=== PATIENT | female | born 1995 | race Caucasian/White ===

== ENCOUNTER 2017-09-17 20:36 | Emergency (ER) | payer BC ==
--- NOTE | 2017-09-17 21:28 | RADIOLOGY REPORT (SQ) ---
EXAM DESCRIPTION: CHEST SINGLE VIEW COMPLETED DATE/TIME: 09/17/2017 9:20 pm REASON FOR STUDY: cough, sob COMPARISON: None. EXAM PARAMETERS: NUMBER OF VIEWS: One view. TECHNIQUE: Single frontal radiographic view of the chest acquired. RADIATION DOSE: NA LIMITATIONS: None. FINDINGS: LUNGS AND PLEURA: No opacities, masses or pneumothorax. No pleural effusion. MEDIASTINUM AND HILAR STRUCTURES: No masses. Contour normal. HEART AND VASCULAR STRUCTURES: Heart normal in size. Normal vasculature. BONES: No acute findings. HARDWARE: None in the chest. OTHER: No other significant finding. IMPRESSION: NO ACUTE RADIOGRAPHIC FINDING IN THE CHEST. TECHNICAL DOCUMENTATION: JOB ID: [id number] [place]-72 2010 [employer]- All Rights Reserved Reading location - IP/workstation name: [employer]
[2017-09-17] MEDS ORDERED: DEXAMETHASONE 4 MG TABLET PO ONE (22:09)
[2017-09-17] MEDS ORDERED: BENZONATATE 100 MG CAPSULE PO ONE (22:13)
[2017-09-17] MEDS ORDERED: AMOXICILLIN TRIHYD 250 MG/5 ML SUSP 80 ML PO ONE (22:14)
--- NOTE | 2017-09-17 22:14 | ER Document Report ---
ED General - General Chief Complaint: Cold Symptoms Stated Complaint: SHORTNESS OF BREATH Time Seen by Provider: 09/17/17 21:07 Notes: Patient is a 22-year-old female without chronic medical problems who presents with feeling sick for "the past 3 months". The patient reports a cough, body aches, sore throat, nasal congestion and bilateral ear pain worse in the right versus the left. She states that she was treated for a pneumonia with levofloxacin approximately 1 month ago but did not have any significant improvement of her symptoms at that time. Nothing is new or different about her symptoms today that prompted a visit to the emergency department. She does work in an assisted living. She has not seen her general doctor regarding today 's concerns. She denies any difficulty breathing, swallowing, headache or neck pain. Multiple sick contacts. - Related Data Allergies/Adverse Reactions: No Known Allergies Allergy (Unverified 09/17/17 20:41) Past Medical History - General Information source: Patient - Social History Smoking Status: Never Smoker Frequency of alcohol use: None Drug Abuse: None Family History: Reviewed & Not Pertinent Patient has suicidal ideation: No Patient has homicidal ideation: No Renal/ Medical History: Denies: Hx Peritoneal Dialysis Review of Systems - Review of Systems Notes: Constitutional: Negative for fever. HENT: Positive for sore throat. Eyes: Negative for visual changes. Cardiovascular: Negative for chest pain. Respiratory: Positive for cough Gastrointestinal: Negative for abdominal pain, vomiting or diarrhea. Genitourinary: Negative for dysuria. Musculoskeletal: Negative for back pain. Skin: Negative for rash. Neurological: Negative for headaches, weakness or numbness. 10 point ROS negative except as marked above and in HPI. Physical Exam - Vital signs Vitals: Temp Pulse Resp BP Pulse Ox 98.4 F 109 H 20 132/84 H 97 09/17/17 20:43 09/17/17 20:43 09/17/17 20:43 09/17/17 20:43 09/17/17 20:43 Interpretation: Tachycardic Notes: PHYSICAL EXAMINATION: GENERAL: Well-appearing, well-nourished and in no acute distress. HEAD: Atraumatic, normocephalic. EYES: Pupils equal round and reactive to light, extraocular movements intact, sclera anicteric, conjunctiva are normal. ENT: nares patent, oropharynx clear without exudates. Moist mucous membranes. Right TM bulging, left TM clear, nasal congestion and bilateral maxillary sinus pressure. NECK: Normal range of motion, supple without lymphadenopathy LUNGS: Breath sounds clear to auscultation bilaterally and equal. No wheezes rales or rhonchi. HEART: Regular rate and rhythm without murmurs ABDOMEN: Soft, nontender, normoactive bowel sounds. No guarding, no rebound. No masses appreciated. EXTREMITIES: Normal range of motion, no pitting or edema. No cyanosis. NEUROLOGICAL: No focal neurological deficits. Moves all extremities spontaneously and on command. PSYCH: Normal mood, normal affect. SKIN: Warm, Dry, normal turgor, no rashes or lesions noted. Course - Re-evaluation Re-evalutation: 09/17/17 22:10 Presentation is most consistent with an acute otitis media on the right. Clinical history as well as exam is most consistent with this diagnosis. Based on history and examination do not suspect an acute meningitis, encephalitis, peritonsillar abscess, or retropharyngeal abscess. Patient appears to have an associated viral upper respiratory infection. Chest x-ray is clear without any evidence of an acute pneumonia. Vitals otherwise within normal limits. The patient will be started on amoxicillin 3 times daily for 10 days. A dose of dexamethasone was given for throat discomfort and there is no evidence of a retropharyngeal abscess on examination. At this time will discharge with return precautions and follow-up recommendations. Verbal discharge instructions given a the bedside to the parents and opportunity for questions given. Medication warnings reviewed. Patient is in agreement with this plan and has verbalized understanding of return precautions and the need for primary care follow-up in the next 24-72 hours. - Vital Signs Vital signs: Temp Pulse Resp BP Pulse Ox 98.9 F 86 16 133/74 H 97 09/17/17 23:30 09/17/17 23:30 09/17/17 23:30 09/17/17 23:30 09/17/17 23:30 - Diagnostic Test Radiology reviewed: Image reviewed, Reports reviewed Radiology results interpreted by me: 09/17/17 22:15 Chest x-ray: No acute infiltrate or pneumothorax Discharge - Discharge Clinical Impression: Viral respiratory infection Right otitis media Qualifiers: Otitis media type: unspecified Qualified Code(s): H66.91 - Otitis media, unspecified, right ear Condition: Good Disposition: HOME, SELF-CARE Additional Instructions: You were seen today for ear pain and have an acute ear infection. Please take the antibiotic that has been prescribed until it is completed even if you are feeling better before you have finished all the antibiotics. For your pain: Take ibuprofen 600 mg and acetaminophen 1000 mg every 6 hours together as needed for pain. Return if you have worsening of your pain, loss of hearing in the affected ear, worsening facial pain, headaches, pass out, or any other symptoms that are worrisome to you. You were seen for symptoms most consistent with bronchitis. This can take up to 12 weeks to fully resolve. This is generally due to a viral infection. Please follow-up with your primary doctor in the next 2-3 days. Return if you develop worsening cough, vomiting, fever >100.4, pass out, begin coughing blood, or have any other symptoms that are concerning to you. Please use the medications prescribed today as directed. Prescriptions: Amoxicillin Trihydrate [Amoxil 200 mg/5 mL Susp] 500 mg PO TID 10 Days ml Referrals: INDIO GUARDADO MD [Primary Care Provider] - Follow up as needed
[2017-09-17] MEDS ORDERED: AMOXICILLIN TRIHYD 250 MG/5 ML SUSP 80 ML ONE (23:15)
[2017-09-17 23:31] VITALS: BP 133/74
== END 2017-09-17 23:31 | disposition home or self-care (01) ==
LOC: ER 20:36
DX: J98.8 Other specified respiratory disorders (principal); B97.89 Other viral agents as the cause of diseases classified elsewhere; H66.91 Otitis media, unspecified, right ear; R05 Cough; J02.9 Acute pharyngitis, unspecified; R09.81 Nasal congestion; H92.03 Otalgia, bilateral; Z87.01 Personal history of pneumonia (recurrent)
CPT/HCPCS: 71045; 99284; J3490

== ENCOUNTER 2018-08-29 15:08 | Emergency (ER) | payer BC ==
--- NOTE | 2018-08-29 16:07 | ER Document Report ---
ED Medical Screen (RME) - General Chief Complaint: Facial Droop Stated Complaint: FACIAL SPASMS Time Seen by Provider: 08/29/18 16:06 Primary Care Provider: INDIO GUARDADO MD [Primary Care Provider] - Follow up as needed Information source: Patient Notes: Patient presents complaining of left side facial and left-sided neck spasms. Patient does complain of some throat discomfort. Patient denies any dental infection. I have greeted and performed a rapid initial assessment of this patient. A comprehensive ED assessment and evaluation of the patient, analysis of test results and completion of the medical decision making process will be conducted by additional ED providers. TRAVEL OUTSIDE OF THE [place] IN LAST 30 DAYS: No - Related Data Allergies/Adverse Reactions: No Known Allergies Allergy (Verified 08/29/18 15:10) Past Medical History Renal/ Medical History: Denies: Hx Peritoneal Dialysis Physical Exam - Vital signs Vitals: Temp Pulse Resp BP Pulse Ox 97.9 F 77 16 147/81 H 99 08/29/18 15:18 08/29/18 15:18 08/29/18 15:18 08/29/18 15:18 08/29/18 15:18 - General General appearance: Appears well, Alert Notes: No potential airway compromise. No trismus. Course - Vital Signs Vital signs: Temp Pulse Resp BP Pulse Ox 97.9 F 77 16 147/81 H 99 08/29/18 15:18 08/29/18 15:18 08/29/18 15:18 08/29/18 15:18 08/29/18 15:18 Doctor's Discharge - Discharge Referrals: INDIO GUARDADO MD [Primary Care Provider] - Follow up as needed
[2018-08-29 16:28] LABS: ABSOLUTE BASOPHILS # (AUTO) 0.1 10^3/uL (0.0-0.2); ABSOLUTE EOSINOPHILS # (AUTO) 0.1 10^3/uL (0.0-0.6); ABSOLUTE LYMPHOCYTES (AUTO) 1.9 10^3/uL (0.5-4.7); ABSOLUTE MONOCYTES (AUTO) 0.8 10^3/uL (0.1-1.4); ABSOLUTE NEUT (AUTO) 16.3 10^3/uL (1.7-8.2); BASOPHILS % (AUTO) 0.4 % (0-2); EOSINOPHILS % (AUTO) 0.6 % (0-6); HEMATOCRIT 40.7 % (36.0-47.0); HEMOGLOBIN 13.8 g/dL (12.0-15.5); LYMPHOCYTES % (AUTO) 9.8 % (13-45); MEAN CORPUSCULAR HEMOGLOBIN 27.8 pg (27.0-33.4); MEAN CORPUSCULAR HGB CONC 33.8 g/dL (32.0-36.0); MEAN CORPUSCULAR VOLUME 82 fl (80-97); MONOCYTES % (AUTO) 4.4 % (3-13); PLATELET COUNT 299 10^3/uL (150-450); RED BLOOD COUNT 4.95 10^6/uL (3.72-5.28); RED CELL DISTRIBUTION WIDTH 13.4 % (11.5-14.0); SEGMENTED NEUTROPHILS % (AUTO) 84.8 % (42-78); TOTAL CELLS COUNTED % (AUTO) 100 %; WHITE BLOOD COUNT 19.2 10^3/uL (4.0-10.5)
[2018-08-29 16:54] LABS: ANION GAP 10 (5-19); BLOOD UREA NITROGEN 13 mg/dL (7-20); CALCIUM 9.9 mg/dL (8.4-10.2); CARBON DIOXIDE 28 mmol/L (22-30); CHLORIDE 101 mmol/L (98-107); GLUCOSE 117 mg/dL (75-110); POTASSIUM 4.2 mmol/L (3.6-5.0)
[2018-08-29] MEDS ORDERED: DEXAMETHASONE SOD PHOS INJ 10 MG/1 ML VIAL IM ONE (17:58)
--- NOTE | 2018-08-29 18:01 | ER Document Report ---
ED General - General Chief Complaint: Facial Droop Stated Complaint: FACIAL SPASMS Time Seen by Provider: 08/29/18 16:06 Primary Care Provider: INDIO GUARDADO MD [Primary Care Provider] - Follow up as needed TRAVEL OUTSIDE OF THE [place] IN LAST 30 DAYS: No - HPI Notes: Patient is a 23-year-old female no significant past medical history who presents complaining of left-sided neck pain/soreness that began about 5 to 6 hours ago. Patient states that the pain is described as spasms and has since improved. Patient states that the pain was worsened when she would rotate her head. Patient states that she does have a little soreness when she swallows, but is able to eat and drink without difficulty otherwise. She is urinating normally. Denies drug allergies. No history of peritonsillar/pharyngeal abscess. No surgical history to her neck or mouth. She has not had any dental pain. Denies any headache, fever, head injury, changes in vision/speech/mentation/hearing, URI, chest pain, palpitations, syncope, cough, shortness of breath, wheeze, dyspnea, abdominal pain, nausea/vomiting/diarrhea, urinary retention, dysuria, hematuria, or rash. - Related Data Allergies/Adverse Reactions: No Known Allergies Allergy (Verified 08/29/18 15:10) Past Medical History - General Information source: Patient - Social History Smoking Status: Current Some Day Smoker Frequency of alcohol use: None Drug Abuse: None Family History: Reviewed & Not Pertinent Patient has suicidal ideation: No Patient has homicidal ideation: No Renal/ Medical History: Denies: Hx Peritoneal Dialysis Review of Systems - Review of Systems -: Yes All other systems reviewed and negative Physical Exam - Vital signs Vitals: Temp Pulse Resp BP Pulse Ox 97.9 F 77 16 147/81 H 99 08/29/18 15:18 08/29/18 15:18 08/29/18 15:18 08/29/18 15:18 08/29/18 15:18 - Notes Notes: PHYSICAL EXAMINATION: GENERAL: Well-appearing, well-nourished and in no acute distress. A&Ox4. Answers questions appropriately. Moves comfortably w/o notable distress HEAD: Atraumatic, normocephalic. EYES: Pupils equal round and reactive to light, extraocular movements intact, sclera anicteric, conjunctiva are normal. ENT: EAC clear b/l. TM's intact b/l without erythema, fluid, or perforation. Nares patent and with clear discharge. oropharynx mild erythema without exudates. 1+ tonsilar hypertrophy without erythema no exudate. No palatine shift. Uvula midline. No tongue protrusion. No drooling, hoarseness, or ai rway compromise. Moist mucous membranes. No sinus tenderness. No dental/gum tenderness or jaw swelling. NECK: Normal range of motion, supple without lymphadenopathy. No rigidity/meningismus. + mild reproducible tenderness to palp near origin left sternocleidomastoid and with lateral rotation. LUNGS: Breath sounds clear to auscultation bilaterally and equal. No wheezes rales or rhonchi. No retractions HEART: Regular rate and rhythm without murmurs, rubs, gallops. ABDOMEN: Soft, nontender, nondistended abdomen. No guarding, no rebound. Normal bowel sounds present. No CVA tenderness bilaterally. No hepatosplenomegaly. NEUROLOGICAL: Normal speech, normal gait. PSYCH: Normal mood, normal affect. SKIN: Warm, Dry, normal turgor, no rashes or lesions noted. Course - Re-evaluation Re-evalutation: 08/29/18 17:[address] Klein who is in agreement with dispo/plan and to hold off on imaging at this time. Patient is an afebrile, well-hydrated, 23-year-old female who presents with left-sided neck pain/submandibular pain with questionable early infection (i.e. paroditis, submandibular abs, viral, etc.) versus muscle spasming. Vitals are acceptable without significant tachycardia, tachypnea, or hypoxia. PE is otherwise unremarkable. There is no evidence of abscess, erythema, asymmetry. No obvious lymphadenopathy is noted. CBC does show an elevated white count at 19 without bandemia. BMP and rapid strep unremarkable. As reviewed with Dr. Klein we will cover with Augmentin and hold off on any imaging. I will give her a shot of Decadron as well. Patient is otherwise nontoxic-appearing and is tolerating p.o. without difficulty. No further work-up warranted. Low suspicion for any meningitis, sepsis, peritonsillar/pharyngeal abscess, respiratory compromise, Pito's, or other emergent systemic condition at this time. Patient is aware this condition can change from initial presentation and she needs to monitor symptoms closely. Conservative measures otherwise for symptoms. Recheck with your PCM in 2-3 days. Consider consult with ENT. Return to the ED with any worsening/concerning symptoms otherwise as reviewed in discharge. Patient is in agreement. - Vital Signs Vital signs: Temp Pulse Resp BP Pulse Ox 97.9 F 77 16 147/81 H 99 08/29/18 15:18 08/29/18 15:18 08/29/18 15:18 08/29/18 15:18 08/29/18 15:18 - Laboratory Result Diagrams: 08/29/18 16:15 08/29/18 16:15 Laboratory results interpreted by me: 08/29/18 08/29/18 16:15 16:15 WBC 19.2 H Seg Neutrophils % 84.8 H Lymphocytes % 9.8 L Absolute Neutrophils 16.3 H Glucose 117 H Discharge - Discharge Clinical Impression: Neck pain on left side Condition: Stable Disposition: HOME, SELF-CARE Additional Instructions: Maintain adequate fluid intake Take meds as directed Salt water gargles, throat sprays, mouthwash rinse, peroxide gargles tylenol/ibuprofen as needed over the counter cold medication as needed for symptoms F/u: with your PCM in 2-3 days for a recheck Consider consult with ENT for ongoing/worsening symptoms Return to the ED with any fever, worsening pain, chest pain, neck pa in/stiffness, shortness of breath, cough, drooling, trouble swallowing/breathing, abdominal pain, n/v/d, rash, or worsening/concerning symptoms otherwise. Prescriptions: Amox Tr/Potassium Clavulanate [Augmentin 875-125 Tablet] 1 tab PO BID 10 Days #20 tablet Forms: Elevated Blood Pressure Referrals: INDIO GUARDADO MD [Primary Care Provider] - Follow up as needed ROC SALEH DO [ASSOCIATE] - Follow up as needed
[2018-08-29 18:10] VITALS: BP 138/89
== END 2018-08-29 18:31 | disposition home or self-care (01) ==
LOC: ER 15:08
DX: M54.2 Cervicalgia (principal); R29.810 Facial weakness; F17.200 Nicotine dependence, unspecified, uncomplicated
CPT/HCPCS: 99284; 96372; 36415; 87070; 87880; 85025; 80048; J1100